=== PATIENT | female | born 1995 | race Caucasian/White ===

== ENCOUNTER 2016-06-17 06:09 | Emergency (ER) | payer BC ==
[~2016-06-17] VITALS: Ht 165.1 cm; Wt 46.1 kg
[~2016-06-17 06:09] MED LIST: CLON0.5T3 PO; CLX20 PO; DOXY100C76 PO; MULT-506 PO
[2016-06-17 06:17] VITALS: TEMP 36.6; Ht 165.1 cm; Wt 46.1 kg
[2016-06-17] MEDS ORDERED: PHENAZOPYRIDINE HCL 200 MG TAB PO STA (06:25)
[2016-06-17] MEDS ORDERED: CIPROFLOXACIN 500 MG TAB PO STA (06:25)
[2016-06-17] MEDS ORDERED: ONDA4TAB10 SL (06:40)
[2016-06-17] MEDS ORDERED: CIPR-255 PO (06:40)
[2016-06-17] MEDS ORDERED: PHEN-876 PO (06:40)
[2016-06-17] MEDS ORDERED: ONDANSETRON 4MG OD TAB PO ONE (06:45)
--- NOTE | 2016-06-17 06:47 | EMERGENCY ROOM VISIT NOTE ---
History Report prepared by Lauren: Remy Beth Under the Supervision of: Dr. Dov Neal D.O. First contact with patient: 06:20 Chief Complaint: URINARY SYMPTOMS Stated Complaint: UTI SYMPTOMS History of Present Illness The patient is a 20 year old female who presents to the Emergency Room with complaints of urinary tract infection symptoms that she began to notice last night. The patient notes that she is a "crazy anxious person" and has a " chronic fear of UTIs." She notes that after urinating last night she felt like she immediately needed to go again. The patient does have a history of UTI and bladder infection, but denies ever having blood in her urine. She denies any recent vomiting, back pain, dizziness, or fevers. She does have a history of anxiety and is on Citalopram and Clonazepam. 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 Source of History: patient Onset: One night ON CALL Position: other (Genitourinary) Quality: other (UTI Sx) Associated Symptoms: No back pain, No fevers, No vomiting Review of Systems See HPI for pertinent positives & negatives. A total of 10 systems reviewed and were otherwise negative. Past Medical & Surgical Medical Problems: (1) Abdominal benign neoplasm (2) Anxiety (3) Migraines Family History Hypertension Social History Smoking Status: Never Smoker Marital Status: single Housing Status: lives with roommate Occupation Status: [employer] Current/Historical Medications Scheduled Ciprofloxacin Hcl (Cipro), 500 MG PO BID Citalopram Hydrobromide (Celexa), 20 MG PO DAILY Multivitamin (Multivitamin), 1 TAB PO DAILY Ondasetron Odt (Zofran Odt), 4 MG SL Q6H Spironolactone (Aldactone), 25 MG PO TID Scheduled PRN Clonazepam (Klonopin), 0.5 MG PO DIRECTED PRN for Anxiety/Insomnia Phenazopyridine HCl (Pyridium), 200 MG PO TID PRN for Burning/Frequency w/ Urination Allergies Coded Allergies: No Known Allergies (Unverified , 06/17/16) Physical Exam Vital Signs Date Time Temp Pulse Resp B/P Pulse Ox O2 Delivery O2 Flow Rate FiO2 06/17/16 06:17 36.6 96 18 82/50 99 Room Air Physical Exam GENERAL: Patient is awake, alert, and in no acute distress. Patient is resting comfortably and showing no signs of anxiety EYES: The conjunctivae are clear. The pupils are round and reactive. EARS, NOSE, MOUTH AND THROAT: The nose is without any evidence of any deformity. Mucous membranes are moist tongue is midline NECK: The neck is nontender and supple. RESPIRATORY: Normal respiratory effort is noted there is no evidence of wheezing rhonchi or rales CARDIOVASCULAR: Regular rate and rhythm noted there no murmurs rubs or gallops normal S1 normal S2 GASTROINTESTINAL: The abdomen is soft. Bowel sounds are present in all quadrants. Abdomen is nontender BACK: No midline tenderness or or step-off noted range of motion in flexion extension as well as rotation no signs of muscle spasm noted MUSCULOSKELETAL/EXTREMITIES: There is no evidence of gross deformity full range of motion is noted in the hips and shoulders SKIN: There is no obvious evidence of any rash. There are no petechiae, pallor or cyanosis noted. NEUROLOGIC: Patient is awake alert and oriented x3 strength is symmetric patellar reflexes are 2+ bilaterally Medical Decision & Procedures Laboratory Results Test 06/17/16 06:30 Urine Color RED Urine Appearance CLOUDY (CLEAR) Urine pH 6.0 (4.5-7.5) Urine Specific [place] >= 1.030 (1.000-1.030) Urine Protein 1+ (NEG) Urine Glucose (UA) NEG (NEG) Urine Ketones TRACE (NEG) Urine Occult Blood 3+ (NEG) Urine Nitrite NEG (NEG) Urine Bilirubin NEG (NEG) Urine Urobilinogen NEG (NEG) Urine Leukocyte Esterase NEG (NEG) Urine RBC >30 /hpf (0-4) Urine WBC >30 /hpf (0-5) Urine Epithelial Cells >30 /lpf (0-5) Urine Bacteria 1+ (NEG) Urine Test NEG (NEG) Laboratory results per my review. Medications Administered Medications (Trade) Dose Ordered Sig/Onel Route Start Time Stop Time Status Last Admin Dose Admin Phenazopyridine HCl (Pyridium Tab) 200 mg NOW STAT PO 06/17/16 06:25 06/17/16 06:28 DC 06/17/16 06:25 200 MG Ciprofloxacin (Cipro Tab) 500 mg NOW STAT PO 06/17/16 06:25 06/17/16 06:28 DC 06/17/16 06:25 500 MG Ondansetron HCl (Zofran Odt) 4 mg ONE ONCE PO 06/17/16 06:45 06/17/16 06:46 DC 06/17/16 06:43 4 MG ED Course 06: The patient was evaluated in room B10. A complete history and physical examination were performed. 0625: Ordered Ciprofloxacin 500 mg PO, Pyridium 200 mg PO. 0645: Ordered Zofran 4 mg PO. 07: I checked on the patient at this time. She was resting comfortably in bed. I informed the patient that the Pyridium would discolor her urine. 0732: Upon reevaluation, the patient is resting in bed. I discussed the results and treatment plan with her. She verbalized agreement of the treatment plan. The patient was discharged home. Medical Decision Prior records/ancillary studies reviewed. Triage Nursing notes reviewed. Differential diagnosis: Etiologies such as renal colic, appendicitis, diverticulitis, mesenteric ischemia, aortic pathology, infections, inflammatory bowel disease, PUD, biliary pathology, UTI, as well as others were entertained. The patient is a 20-year-old female who presented to the emergency department for evaluation of dysuria and frequency. The patient had a urinalysis which revealed signs of hemorrhagic cystitis on urine dip. The patient was not . The patient was treated with Pyridium as well as Cipro in the emergency department. She had some nausea and was treated with Zofran. She was encouraged to drink plenty clear liquids and continue all medications as prescribed. She was also encouraged to follow-up with her primary care physician as soon as possible return to the emergency Department immediately if symptoms change worsen or the need arises. Impression Primary Impression: Hemorrhagic cystitis Scribe Attestation The scribe's documentation has been prepared under my direction and personally reviewed by me in its entirety. I confirm that the note above accurately reflects all work, treatment, procedures, and medical decision making performed by me. Departure Information Dispostion Home / Self-Care Prescriptions Phenazopyridine HCl (Pyridium) 200 Mg Tab 200 MG PO TID Y for Burning/Frequency w/Urination, #6 TAB Prov: Dov Neal, DO 06/17/16 Ondasetron Odt (ZOFRAN ODT) 4 Mg Tab 4 MG SL Q6H for Nausea, #15 TAB Prov: Dov Neal, DO 06/17/16 Ciprofloxacin Hcl (CIPRO) 500 Mg Tab 500 MG PO BID, #14 TAB Prov: Dov Neal, DO 06/17/16 Referrals No Doctor, Assigned (PCP) Forms HOME CARE DOCUMENTATION FORM, IMPORTANT VISIT INFORMATION Patient Instructions My [facility] Additional Instructions Drink plenty clear liquids. Continue all medications as prescribed. Follow-up with your family for further management but return to the emergency department immediately if symptoms change worsen or the need arises.
[2016-06-17 07:09] LABS: MANUAL MICROSCOPIC REQUIRED? YES; URINE APPEARANCE CLOUDY (CLEAR); URINE BILIRUBIN NEG (NEG); URINE COLOR RED; URINE NITRITE NEG (NEG); URINE SPECIFIC GRAVITY >= 1.030 (1.000-1.030); UROBILINOGEN NEG (NEG)
[2016-06-17 07:15] LABS: REVIEW REQ? NO
[2016-06-17] MEDS ORDERED: SPIR25TA89 PO (07:17)
[2016-06-17] MEDS ORDERED: CITA20TA9 PO (07:17)
[2016-06-17 07:19] LABS: URINE RBC >30 /hpf (0-4); URINE WBC >30 /hpf (0-5)
[2016-06-17 07:20] LABS: URINE BACTERIA 1+ (NEG)
[2016-06-17 07:25] VITALS: BP 99/60; PULSE 78; O2SAT 100
--- NOTE | 2016-06-19 15:34 | Pharmacy Progress Note ---
ED Pharmacist Culture FollowUp Date of Service: June 19, 2016. Patient was sent home with a prescription for ciprofloxacin, which should cover the E. coli growing from the patient's urine culture.
== END 2016-06-17 07:28 | disposition home or self-care (01) ==
LOC: C.EDB 06:10
DX: N30.90 Cystitis, unspecified without hematuria (principal); F41.9 Anxiety disorder, unspecified; Z86.018 Personal history of other benign neoplasm; Z79.899 Other long term (current) drug therapy; Z82.49 Family history of ischemic heart disease and other diseases of the circulatory system